=== PATIENT | male | born 1985 | race Caucasian/White ===

== ENCOUNTER 2023-10-26 17:28 | Observation (INO) | payer OTHER, SELFPAY ==
[2023-10-26 23:13] VITALS: BMI 26.6
--- NOTE | 2023-10-26 23:14 | PC.NURSE ---
Pt arrived with transport AOx3, room air at 96%, HR 116, BP 155/98, Oral Temp of 99.0. Tx from stretcher to bed independently. Presented with mild tremors, denies headache, n/v/d, chest pain. Lungs clear. Moving all extremities. Bruising on bilateral knees, L 2nd toe bruising and mild swelling, able to move toes. Pt states his last drink was wednesday 1/2 bottle of vodka per day and I didn't know I wasn't suppose to stop completely and thats when I had seizure. States found him in kitchen, but he has no memory of falling/seizure activity. Unknown if hit head, but no bruising or lacerations. Dr Mart notified. No orders currently. Seizures pad placed on bed, tele on. Bed alarm activated with call light in reach.
[2023-10-26 23:33] VITALS: BP 155/98; PULSE 114; RESP 17; TEMP 37.2; O2SAT 96
--- NOTE | 2023-10-27 00:13 | P.HP_ITS ---
History of Present Illness History of Present Illness Date Patient Seen: 10/26/23 Time Patient Seen: 23:50 Chief complaint: ETOH withdraw, seizures Narrative: 38 y/o with PMH of anxiety, depression, HTN and alcoholism, transferred from [facility] at [facility] for observation, after he had alcohol withdrawal seizure. He was treated with several doses of phenobarbital (130 mg) in an outside ED. On admission minimally tremulous, anxious, w/o hallucinations, headache, chest pressure, palpitations or any other complaint. [facility] Social History household members: spouse Smoking Status: Never smoker alcohol intake: current Meds Home Medications and Allergies Home Medications Medication Instructions Recorded Confirmed Type amlodipine 10 mg tablet 10 mg PO BEDTIME 10/26/23 10/26/23 History bupropion HCl 300 mg 24 hr tablet, 300 mg PO BEDTIME 10/26/23 10/26/23 History extended release lisinopril 40 mg tablet 40 mg PO BEDTIME 10/26/23 10/26/23 History Review of Systems Cardiovascular Comments: w/o chest pain or palpitations Respiratory Comments: w/o SOB Gastrointestinal Comments: asymptomatic Psychiatric Comments: anxiety and depression Exam Vital Signs (past 8 hours): - 10/26/23 23:33 Temperature 99.0 F Pulse Rate 114 H Respiratory Rate 17 Blood Pressure 155/98 H Pulse Oximetry 96 Oxygen Flow Rate 0 Oxygen Flow Rate 0 Const Other: in no distress HENMT Other: atraumatic Eyes General: appearance normal, both eyes and all related structures Neck Other: supple Resp Other: normal respiratory effort Cardio Other: tachycardic, regular Neuro Other: minimal b/l arm tremor Extrem Other: w/o swelling Psych Other: mild anxiety, lucid Objective Labs Labs: Outside hospital labs: MCV 103 ethanol - 0.015 Mg 1.7 Lipase 86 AST 62 ALT 75 CTH - unremarkable EKG - sinus tachycardia toxscreen - THC Assessment & Plan Assessment and plan (1) Alcohol withdrawal seizure: Status: Acute (2) Alcoholism: Status: Acute (3) HTN (hypertension): Status: Acute (4) Anxiety and depression: Status: Acute Assessment & Plan narrative: Alcoholism / Seizure - in the last 10 years - w/o prior hospitalizations with withdrawals, w/o seizures - never went to detox - FA, thiamine, counselling - Librium 25 mg tid for the next few days - monitored on telemetry HTN - Lisinopril, Norvasc Anxiety / Depression - Wellbutrin DVT prophylaxis - SCDs Time-Based Coding :: [TOTAL MINUTES] spent with patient and on the chart (including review of chart, obtaining history, exam, reviewing outside data, placing orders, documenting exam and treatment plan, and counseling patient) on [DATE]. Quality VTE Deep Vein Thrombosis/Pulmonary Embolism Present on Admission: No
[2023-10-27] MEDS: chlordiazePOXIDE 25 MG CAPSULE PO ×3 (00:28→14:51)
[2023-10-27 05:25] VITALS: BP 119/81; PULSE 86; RESP 18; TEMP 36.4; O2SAT 99
[2023-10-27 06:35] LABS: Add Manual Diff / Slide Review NO; Basophils Absolute Auto 0 /uL (0-100); Basophils Percent Auto 0.4 % (0-2); Eosinophils Absolute Auto 200 /uL (0-450); Eosinophils Percent Auto 3.6 % (2-4); Hematocrit 39.4 % (41-53); Hemoglobin 13.4 g/dL (13.5-17.5); Lymphocytes Absolute Auto 800 /uL (1100-4500); Lymphocytes Percent Auto 14.7 % (25-40); Mean Corpuscular Volume 102.8 fL (80-100); Monocytes Absolute Auto 600 /uL (0-900); Monocytes Percent Auto 11.1 % (3-14); Neutrophils Absolute Auto 3700 /uL (1500-7000); Neutrophils Percent Auto 70.2 % (50-75); Platelet Count 86 X10^3/uL (150-400); Red Blood Cell Count 3.83 X10^6/uL (4.5-5.9); Red Cell Distribution Width 13.7 % (11.6-14.8); White Blood Cell Count 5.3 X10^3/uL (4.5-11.0)
[2023-10-27 06:51] LABS: BUN Creatinine Ratio 5.9 (6-22); Blood Urea Nitrogen 4 mg/dL (9-20); Carbon Dioxide 28 mmol/L (22-32); Chloride 101 mmol/L (98-107); Estimated Glomerular Filt Rate > 60 mL/min (>60); Glucose 98 mg/dL (70-100); HEMOLYSIS < 15 (0-50); Magnesium 2.1 mg/dL (1.6-2.3); Potassium 3.6 mmol/L (3.4-5.1); Sodium 136 mmol/L (137-145)
[2023-10-27 08:00] VITALS: BP 140/91; PULSE 108; RESP 16; TEMP 37; O2SAT 99
[2023-10-27 12:00] VITALS: BP 140/99; PULSE 87; RESP 16; TEMP 37; O2SAT 98
--- NOTE | 2023-10-27 14:49 | P.DS_ITS ---
History of Present Illness History of Present Illness Date Patient Seen: 10/26/23 Time Patient Seen: 23:50 Chief complaint: ETOH withdraw, seizures Narrative: 38 y/o with PMH of anxiety, depression, HTN and alcoholism, transferred from [facility] at [facility] for observation, after he had alcohol withdrawal seizure. He was treated with several doses of phenobarbital (130 mg) in an outside ED. On admission minimally tremulous, anxious, w/o hallucinations, headache, chest pressure, palpitations or any other complaint. Discharge Providers Provider Date of admission: 10/26/23 17:28 Discharge Date: 10/27/23 Discharge provider: Matt King MD Summary Hospital Course Discharge Diagnosis: #Severe Alcohol Withdrawal #Withdrawal Seizure Hospital Course: Patient was loaded with phenobarbital in ED at outside facility. He arrive in stable condition without signs of severe withdrawal and started on fixed dose Librium. Patient remained clinically stable and was discharged home in stable condition. Status at Discharge Overall status at discharge: patient is back to baseline Time Spent with Patient Time spent: Less than 30 minutes Exam Vital Signs (past 8 hours): - 10/27/23 08:00 10/27/23 12:00 Temperature 98.6 F 98.6 F Pulse Rate 108 H 87 Respiratory Rate 16 16 Blood Pressure 140/91 H 140/99 H Pulse Oximetry 99 98 Oxygen Flow Rate 0 0 Oxygen Delivery Method Room Air Oxygen Flow Rate 0 Narrative Exam Narrative: well appearing, in no distress, normal respiratory effort no significant tremor calm and agreeable Objective Labs 10/27/23 06:20 10/27/23 06:20 Labs: Laboratory Results - last 24 hr 10/27/23 06:20 WBC 5.3 RBC 3.83 L Hgb 13.4 L Hct 39.4 L MCV 102.8 H MCH 35.0 H MCHC 34.0 RDW 13.7 Plt Count 86 L Neut % (Auto) 70.2 Lymph % (Auto) 14.7 L [place] % (Auto) 11.1 Eos % (Auto) 3.6 Baso % (Auto) 0.4 Neut # (Auto) 3700 Lymph # (Auto) 800 L [place] # (Auto) 600 Eos # (Auto) 200 Baso # (Auto) 0 Sodium 136 L Potassium 3.6 Chloride 101 Carbon Dioxide 28 BUN 4 L Creatinine 0.68 Estimated GFR > 60 BUN/Creatinine Ratio 5.9 L Glucose 98 Calcium 9.0 Magnesium 2.1 PFSH Social History household members: spouse Smoking Status: Never smoker alcohol intake: current Discharge Assessment & Plan Assessment and Plan Assessment: #Severe Alcohol Withdrawal Plan of Treatment: Rx sent for librium 25mg TID for 3 days Patient advised to return to ED if he worsens Patient advised to stop his buproprion till he sees PCP due to elevated seizure risk Discharge Plan Discharge Plan Patient Disposition: Home Provider Discharge Comment: stable for discharge Discharge orders & Medications Prescriptions: New chlordiazepoxide HCl 25 mg capsule 25 mg PO TID Qty: 12 0RF Continued amlodipine 10 mg tablet 10 mg PO BEDTIME lisinopril 40 mg tablet 40 mg PO BEDTIME Discontinued bupropion HCl 300 mg tablet extended release 24 hr 300 mg PO BEDTIME Visit Report/Discharge Packet Stand Alone Forms: Patient Portal/API, Stroke Signs & Symptoms Discharge Data Attending Provider: Matt King Admit Date/Time: 10/26/23 17:28 Quality VTE Deep Vein Thrombosis/Pulmonary Embolism Present on Admission: No
--- NOTE | 2023-10-27 15:04 | CM.DANOTE ---
Initial DCP Assessment Visit Note Reviewed EMR and team rounds for status updates. Met with pt at bedside to introduce self and role, pt was found to be alert, oriented, and dressed, sitting in the chair awaiting discharge home. Pt lives with his /familyin their own home in [place], he is independent and employed full-time. He has been medically cleared for home d/c, his will pick hip up later this afternoon. No DCP assistance or resource needs identified at this time. Payor: Brittany Preferred No PCP. Pt is a 38 year-old M who was transferred from [facility] following an alcoholic siezure. He had received several doses of phenobarbital in their ED prior to transfer. He was treated with IV fluids and librium, and was feeling much improved this am. He otherwise had an uneventful course as he was monitored in OBS. No further needs identified at this time. He was encouraged to return to the ED should he begin to experience withdrawal symptoms once discharged. Discharge Planning/Care Management CM Discharge Assessment Start: 10/27/23 15:01 Freq: Status: Active Protocol: Document 10/27/23 15:01 DPL (Rec: 10/27/23 15:04 DPL [id number]) Discharge Planning Assessment Assigned Bonding Machine Tender TEE Blunt Advance Directives? No History Provided By Patient,Medical Record Has Patient been admitted in last 30 No days? Prior Living Arrangements House Household Members spouse Type of transporation used prior to Drives own vehicle admit Independent with ADL's Yes Is patient alert and oriented? Yes Comment N/A Caregiver for Another No Comment N/A Comment No identified home d/c needs at this time. Barriers to Discharge No Discharge Plan Home Transportation Arrangement Spouse Referrals Initiated None needed Whiteboard Updated in Patient Room with Yes name and ext. # of Bonding Machine Tender Review Status In Process Please Provide Date Initial DC 10/27/23 Assessment Was Performed
--- NOTE | 2023-10-27 15:10 | PC.NURSE ---
Patient is A&OX4, VSS,afebrile on RA. NSR on telemetry. MD at bedside evaluating patient and cleared patient for discharge home. He has a CIWA score of 1-2 today. Patient denied agitation, anxiety, hallucinations, headache. Slight tremor and slight perspiration this afternoon. He verbalizes understanding of plan of discharge and medication prescription as well as follow up with PCP. He is escorted by RN with all of his belongings for discharge home with father in private vehicle this afternoon at approximately 1500.
== END 2023-10-27 15:05 | disposition home or self-care (01) ==
PROVIDERS: Internal Medicine; Admitting Provider Student in an Organized Health Care Education/Training Program; Referring Provider Student in an Organized Health Care Education/Training Program; Visit Provider Student in an Organized Health Care Education/Training Program
DX: F10.239 Alcohol dependence with withdrawal, unspecified (principal); R56.9 Unspecified convulsions; I10 Essential (primary) hypertension; F41.9 Anxiety disorder, unspecified; F32.A Depression, unspecified
CPT/HCPCS: 80048; 83735; 85025; G0378; G0379